=== PATIENT | female | born 1950 | race Two or more races ===

== ENCOUNTER 2016-12-11 15:03 | Emergency (ER) | payer OTHER ==
[~2016-12-11] VITALS: Ht 157.5 cm; Wt 62.4 kg
[2016-12-11 15:48] LABS: BLOOD UREA NITROGEN 17 mg/dL (7-18)
[2016-12-11 15:51] LABS: DIFF TOTAL CELLS COUNTED 100 CELL DIFF
[2016-12-11 16:27] LABS: HEMATOCRIT 35.1 % (34.6-47.8); HEMOGLOBIN 12.2 g/dL (11.7-16.4); WHITE BLOOD COUNT 206.8 x10^3/uL (3.4-10)
[2016-12-11 16:36] LABS: VERIFY COUNTS? YES
[2016-12-11 16:38] LABS: ANISOCYTOSIS 1+; POLYCHROMASIA 1+
[2016-12-11] MEDS ORDERED: ACETAMINOPHEN 325 MG TABLET ONE (17:23)
[2016-12-11] MEDS ORDERED: ACETAMINOPHEN 325 MG TABLET PO ONE (17:30)
[2016-12-11 19:12] VITALS: BP 122/68
== END 2016-12-11 19:14 | disposition home or self-care (01) ==
LOC: ED 18:39
DX: D72.829 Elevated white blood cell count, unspecified (principal); E11.9 Type 2 diabetes mellitus without complications; I10 Essential (primary) hypertension
CPT/HCPCS: 36415; 70450; 80048; 82040; 85025; 85610; 85730; 93005; 99285